=== PATIENT | male | born 1960 | race Caucasian/White ===

== ENCOUNTER 2018-08-29 23:52 | Inpatient (IN) ==
[2018-08-30] MEDS ORDERED: ONDANSETRON INJ 2 MG/ML 2 ML VIAL IV STA (00:12)
[2018-08-30] MEDS ORDERED: KETOROLAC 30 MG/ML VIAL IV STA (00:12)
[2018-08-30 00:30] LABS: Basophils # (auto) 0.01 K/uL (0-0.2); Basophils % (auto) 0.1 %; Eosinophils # (auto) 0.25 K/uL (0-0.5); Eosinophils % (auto) 2.4 %; Hematocrit (blood only) 47.5 % (42-52); Hemoglobin 17.1 g/dL (14.0-18.0); Immature Granulocytes # (auto) 0.03 K/uL (0.00-0.02); Immature Granulocytes % (auto) 0.3 %; Lymphocytes # (auto) 2.72 K/uL (1.2-3.4); Lymphocytes % (auto) 26.3 %; Mean Corpuscular Volume 92.6 fL (80-100); Mean Platelet Volume 10.5 fL (7.4-10.4); Monocytes # (auto) 0.79 K/uL (0.11-0.59); Monocytes % (auto) 7.6 %; Neutrophils # (auto) 6.54 K/uL (1.4-6.5); Neutrophils % (auto) 63.3 %; Platelet Count 187 K/uL (130-400); RDW Coefficient of Variation 12.4 % (11.5-14.5); RDW Standard Deviation 42.2 fL (36.4-46.3); Red Blood Count 5.13 M/uL (4.7-6.1); White Blood Count 10.34 K/uL (4.8-10.8)
[2018-08-30 00:31] LABS: Appearance Urine Clear (Clear); Bilirubin Urine Negative (Negative); Color Urine Yellow; Glucose Urine UA Negative (Negative); Ketones Urine Negative (Negative); Leukocyte Esterase Urine Negative (Negative); Nitrite Urine Negative (Negative); Protein Urine Negative (Negative); Specific Gravity Urine 1.021 (1.000-1.030); Urobilinogen Urine Negative (Negative)
[2018-08-30 00:46] LABS: BUN Creatinine Ratio 20.5 (10-20); Calcium 8.7 mg/dl (8.5-10.1); Creatinine Clr Calc Pharmacy 65.1 ml/min; Est GFR (African American) 65.2; Est GFR (Non-African American) 56.3; Potassium 3.8 mmol/L (3.5-5.1)
[2018-08-30 00:49] LABS: Albumin Globulin Ratio 1.1 (0.9-2); Bilirubin,Total 0.4 mg/dl (0.2-1); Globulin 3.7 gm/dl (2.5-4.0); Total Protein 7.7 gm/dl (6.4-8.2)
[2018-08-30] MEDS ORDERED: SODIUM CHLORIDE 0.9% 1000ML 1,000 ML IV SCH (02:00)
[2018-08-30] MEDS ORDERED: IOVERSOL 100ml IV PRN (02:17)
[2018-08-30] MEDS ORDERED: HYDROmorphone INJ 2 MG/ML SYR/VIAL IV STA (04:01)
--- NOTE | 2018-08-30 04:41 | History & Physical Report ---
Date of Service August 30, 2018 Assessment & Plan (1) Pancreatitis: Patient severe abdominal pain, markedly elevated lipase, pancreatic inflammation noted on CT c/w pancreatitis. Possibly secondary to EtOH intake. -Admit to medical floor -NPO -LR at 200mL/hr x 3 liters -Morphine PRN pain -Zofran PRN nausea -Continue to monitor (2) Hypertension: Blood pressure mildly elevated at present 147/103. -Pain control as above -Continue Lisinopril daily (3) Gout: Possible gout in left great toe. Pain started this AM as well. No history of Gout -Check uric acid with AM labs -X-ray left foot -Toradol PRN F/E/N - LR at 200mL/hr x 2 liters, monitor electrolytes and replete as needed, NPO for now Ppx - low risk for DVT Code - FUll Dispo - Admit to medical floor History of Present Illness Chief Complaint: Abdominal pain Primary Care Provider: Jose Purcell Mr. Mcfadden is a 57yo C male with history of HTN presenting with acute abdominal pain. Patient was sleeping in bed when he woke around 22:00 with severe abdominal pain. Pain in lower abdomen and back, cramping and stabbing in nature, 10/10. No nausea/vomiting/diarrhea or constipation. He tried to eat and drink a little bit with no relief. [place] [address] of the abdomen with fat stranding and peripancreatic fluid consistent with pancreatitis. Patient has never had pancreatitis before. No history of gallstones. He does drink 1-2 drinks/day. This evening he was bowling with family and had hot wings and split 2 pitchers of beer between 4 people. Patient also complaining of pain in the left great toe. He has been taking Ibuprofen at home for presumed Gout. Allergies Allergy/AdvReac Type Severity Reaction Status Date / Time nut - unspecified Allergy Severe Verified 08/30/18 04:32 almond Allergy Anaphylaxis Verified 08/30/18 03:33 Home Medications Home Medications Medication Instructions Recorded Confirmed Type lisinopril 10 mg PO DAILY 08/30/18 08/30/18 History Past Med/Surg History Medical History Hypertension Surgical History No significant past surgical history Family History Other No pertinent family history Social History Feels Safe at Home: Yes Smoking Status: Never smoker Hx Alcohol Use: Yes Hx Substance Use: No Preferred Language: Occitan Review of Systems All systems reviewed & are unremarkable except as noted in HPI & below Physical Exam 2 Vital Signs (Past 24 Hours): Last Vital Signs Temp 36.7 C 08/30/18 00:00 Pulse 77 08/30/18 04:15 Resp 16 08/30/18 04:15 BP 147/103 H 08/30/18 04:15 Pulse Ox 93 08/30/18 04:15 Physical Exam: General: patient in mild distress secondary to pain, non- toxic in appearance, AA&O x 4 Skin: warm, dry, intact, no rashes or lesions HEENT: NC/AT, PERRL, EOMI, anicteric sclera, conjunctiva without injection, external ear normal to inspection and nontender, nares patent, moist mucus membranes, dentition intact, no oropharyngeal lesions, neck supple, trachea midline, no LAD, no thyromegaly, no JVD Heart: +S1/S2, regular, no m/r/g Lungs: equal air entry bilaterally, no rales/rhonchi/wheezes Abd: +BS, soft, diffusely tender with voluntary guarding Ext: warm, 2+ pulses in UE/LE bilaterally, no clubbing/cyanosis or edema, left great toe with warmth, redness, swelling and tenderness Neuro: nonfocal, patient AA&O x 4, speech intact, no facial droop, moving all extremities on command with equal strength 5/5 Results & Data Laboratory Results Lab Results 08/30/18 08/30/18 08/30/18 Range/Units 00:10 00:17 00:17 WBC 10.34 (4.8-10.8) K/uL RBC 5.13 (4.7-6.1) M/uL Hgb 17.1 (14.0-18.0) g/dL Hct 47.5 (42-52) % MCV 92.6 (80-100) fL MCH 33.3 (25-34) pg MCHC 36.0 (32-36) g/dL RDW Std Deviation 42.2 (36.4-46.3) fL RDW Coeff of Tisha 12.4 (11.5-14.5) % Plt Count 187 (130-400) K/uL MPV 10.5 H (7.4-10.4) fL Immature Gran % (Auto) 0.3 % Neut % (Auto) 63.3 % Lymph % (Auto) 26.3 % [place] % (Auto) 7.6 % Eos % (Auto) 2.4 % Baso % (Auto) 0.1 % Immature Gran # (Auto) 0.03 H (0.00-0.02) K/uL Neut # (Auto) 6.54 H (1.4-6.5) K/uL Lymph # (Auto) 2.72 (1.2-3.4) K/uL [place] # (Auto) 0.79 H (0.11-0.59) K/uL Eos # (Auto) 0.25 (0-0.5) K/uL Baso # (Auto) 0.01 (0-0.2) K/uL Sodium 137 (136-145) mmol/L Potassium 3.8 (3.5-5.1) mmol/L Chloride 105 (98-107) mmol/L Carbon Dioxide 27 (21-32) mmol/L Anion Gap 5.0 (3-11) BUN 28 H (7-18) mg/dl Creatinine 1.39 (0.6-1.4) mg/dl Est Cr Clr Drug Dosing 65.1 ml/min Est GFR ( Amer) 65.2 Est GFR (Non-Af Amer) 56.3 BUN/Creatinine Ratio 20.5 H (10-20) Glucose 125 H (70-99) mg/dl Calcium 8.7 (8.5-10.1) mg/dl Total Bilirubin 0.4 (0.2-1) mg/dl AST 23 (15-37) U/L ALT 33 (12-78) U/L Alkaline Phosphatase 82 (45-117) U/L Total Protein 7.7 (6.4-8.2) gm/dl Albumin 4.0 (3.4-5.0) gm/dl Globulin 3.7 (2.5-4.0) gm/dl Albumin/Globulin Ratio 1.1 (0.9-2) Lipase 31908 H (73-393) U/L Urine Color Yellow Urine Appearance Clear (Clear) Urine pH 5.0 (4.5-7.5) Ur Specific [place] 1.021 (1.000-1.030) Urine Protein Negative (Negative) Urine Glucose (UA) Negative (Negative) Urine Ketones Negative (Negative) Urine Blood Negative (Negative) Urine Nitrite Negative (Negative) Urine Bilirubin Negative (Negative) Urine Urobilinogen Negative (Negative) Ur Leukocyte Esterase Negative (Negative) Diagnostic Findings CT Abdomen with fat stranding and fluid consistent with pancreatitis. No abscess or pseudocyst. No ductal dilatation or mass. Code Status & VTE Plan Code Status full VTE Prophylaxis Plan VTE Prophylaxis will be ordered: Yes Critical Care Time Critical Care Time: No _ (1) Pancreatitis Acute pancreatitis complication: unspecified Chronicity: acute Pancreatitis type: unspecified pancreatitis type Qualified Code(s): K85.90 - Acute pancreatitis without necrosis or infection, unspecified (2) Hypertension Hypertension type: essential hypertension Qualified Code(s): I10 - Essential (primary) hypertension (3) Gout Gout site: foot Gout etiology: unspecified cause Laterality: left Chronicity: acute Qualified Code(s): M10.9 - Gout, unspecified
--- NOTE | 2018-08-30 05:37 | Emergency Department Note ---
Entered by Kay Hope acting as a scribe for History of Present Illness General Chief complaint: Abdominal Pain Stated complaint: STOMACH,CHEST,LOW BACK PAIN FOR 90 MINUTES Time Seen by Provider: 08/30/18 00:04 History of Present Illness Onset (ago): minute(s) (90) Location: abdomen Radiation: back Severity: severe Pain Consistency: + intermittent Maximum Pain Intensity: 5 Relieved By: + none Exacerbated By: + other (deep breaths) Associated symptoms: + denies other symptoms (sore throat); no cough The patient is a 57 year old male who presents to the Emergency Room with complaints of abdominal pain that began 90 minutes ago. He states that the pain woke him up, and he notes that he felt normal prior to going to bed. The patient reports that the pain is severe, noting that it's intermittent. He states that the pain radiates to his back. The patient complains of pain in his left foot, stating that he was diagnosed with gout recently. He denies any sore throat or cough. The patient notes that nothing relieves the pain. He states that the pain worsens with deep breaths. The patient reports that he had a normal BM yesterday morning. He states that he had a colonoscopy, noting that it was normal. The patient notes a history of hypertension. Home Medications Home Medications Medication Instructions Recorded Confirmed Type lisinopril 10 mg PO DAILY 08/30/18 08/30/18 History Allergies Allergy/AdvReac Type Severity Reaction Status Date / Time nut - unspecified Allergy Severe Verified 08/30/18 04:32 almond Allergy Anaphylaxis Verified 08/30/18 03:33 Past Med/Surg History Medical History Hypertension Surgical History No significant past surgical history Family History Other No pertinent family history Social History Feels Safe at Home: Yes Smoking Status: Never smoker Hx Alcohol Use: Yes Hx Substance Use: No Preferred Language: [place] Review of Systems See HPI for pertinent positives & negatives. and A total of 10 systems reviewed and were otherwise negative Physical Exam Vital Signs Vital Signs - 24 hr 08/30/18 00:00 08/30/18 01:30 08/30/18 02:31 Temperature 36.7 C Temperature Source Oral Sepsis Recent Fever Within 48 Hours No Sepsis Action Taken by Nursing No Action Required Pulse Rate 73 78 Pulse Rate [Apical] 78 88 Pulse Rhythm Regular Pulse Rhythm [Apical] Regular Pulse Strength [Apical] Respiratory Rate 24 18 16 Respiratory Effort / Characteristics Spontaneous Non-Labored Spontaneous Non-Labored Respiratory Depth Shallow Normal Normal Respiratory Pattern Regular Regular Blood Pressure 154/92 H Blood Pressure [Left Arm] 139/75 Blood Pressure Mean 112 Blood Pressure Mean [Left Arm] 96 Pulse Oximetry 93 98 98 Oxygen Delivery Method Room Air Room Air Room Air 08/30/18 03:21 08/30/18 04:15 08/30/18 05:02 Temperature Temperature Source Sepsis Recent Fever Within 48 Hours Sepsis Action Taken by Nursing Pulse Rate Pulse Rate [Apical] 75 77 68 Pulse Rhythm Pulse Rhythm [Apical] Regular Regular Pulse Strength [Apical] Normal Normal Respiratory Rate 16 16 16 Respiratory Effort / Characteristics Non-Labored Spontaneous Non-Labored Respiratory Depth Normal Normal Respiratory Pattern Regular Regular Blood Pressure Blood Pressure [Left Arm] 134/62 147/103 H 133/97 Blood Pressure Mean Blood Pressure Mean [Left Arm] 86 117 109 Pulse Oximetry 98 93 95 Oxygen Delivery Method Room Air Room Air Room Air General: The patient appears quite unwell and uncomfortable. He is unable to keep still. HEENT: Head - normocephalic and atraumatic Pupils are equal, round, and reactive to light. Extraocular eye muscles are intact, and sclera are anicteric. Nose - moist nasal mucosa without discharge. Mouth - moist buccal mucosa. Oropharynx is nonerythematous and there is no tonsillar exudate or edema noted. Neck: Supple; no JVD, nuchal rigidity, cervical lymphadenopathy, or auscultated bruits. Heart: Tachycardic rate and regular rhythm. There is a normal S1 and S2 with no murmurs, clicks, or gallops appreciated. Lungs: Clear to auscultation bilaterally with no wheezes, rales, or rhonchi. Abdomen: Soft, nondistended, with good bowel sounds. There are no palpable pulsatile masses or hepatosplenomegaly. There is no guarding, rigidity, or rebound noted. Left upper quadrant and CVA tenderness. Extremities: No evidence of cyanosis, clubbing, or edema. There are easily palpable peripheral pulses. Skin: warm and dry with good turgor and no rashes. Course 0006: Past medical records reviewed. The patient was evaluated in room B10, and a complete history and physical examination were performed. An IV lock was initiated and labs were drawn as above. 0012: Toradol 30 mg IV, Zofran 4 mg IV. The patient had an obstruction series as described above. 0156: I checked on the patient. I reviewed the results of his laboratory studies including the significantly elevated lipase. He stated that he was comfortable and he didn't want pain medications. The patient admitted to drinking alcohol 4 nights a week, stating that this is less than he used to drink. 0200: NSS 1000 mls @ 999 mls/hr IV 0359: I checked on the patient. He stated that he was having more pain. 0401: Dilaudid 2 mg IV 0402: I spoke with Dr. Breanna Mathew, [facility] hospitalist, about the patients case. She will evaluate the patient further. Consultations Consultation #1: I spoke with Dr. Breanna Mathew, [facility] hospitalist, about the patients case. She will evaluate the patient further. Time: 04:02 Administered Medications Ioversol (Optiray 320 100ml) 100 ml IV ONCE PRN PRN Reason: Interaction Checking Stop: 09/03/18 02:16 Last Admin: 08/30/18 02:17 Dose: 92 ml Discontinued Medications Hydromorphone HCl (Dilaudid) 2 mg IV NOW STA Stop: 08/30/18 04:02 Last Admin: 08/30/18 04:13 Dose: 2 mg Sodium Chloride (Nss 1000ml) 1,000 mls @ 999 mls/hr IV .Q1H1M RICKEY Stop: 08/30/18 03:00 Last Infusion: 08/30/18 04:26 Dose: 0 mls/hr Admin: 08/30/18 02:21 Dose: 999 mls/hr Ketorolac Tromethamine (Toradol) 30 mg IV NOW STA Stop: 08/30/18 00:13 Last Admin: 08/30/18 00:27 Dose: 30 mg Ondansetron HCl (Zofran) 4 mg IV NOW STA Stop: 08/30/18 00:13 Last Admin: 08/30/18 00:28 Dose: 4 mg Medical Decision Making Differential Diagnosis The differential diagnosis includes: ureteral colic, pancreatitis abdominal aortic dissection, aortic aneurysm, colitis, diverticulitis, and small bowel obstruction Medical Records Attestation: I reviewed the patient's medical records. Home Medications Current Medication List: was personally reviewed by me Laboratory Data Attestation: I reviewed the patient's lab results. Result diagrams: 08/30/18 00:17 08/30/18 00:17 Lab Results 08/30/18 08/30/18 08/30/18 Range/Units 00:10 00:17 00:17 WBC 10.34 (4.8-10.8) K/uL RBC 5.13 (4.7-6.1) M/uL Hgb 17.1 (14.0-18.0) g/dL Hct 47.5 (42-52) % MCV 92.6 (80-100) fL MCH 33.3 (25-34) pg MCHC 36.0 (32-36) g/dL RDW Std Deviation 42.2 (36.4-46.3) fL RDW Coeff of Tisha 12.4 (11.5-14.5) % Plt Count 187 (130-400) K/uL MPV 10.5 H (7.4-10.4) fL Immature Gran % (Auto) 0.3 % Neut % (Auto) 63.3 % Lymph % (Auto) 26.3 % [place] % (Auto) 7.6 % Eos % (Auto) 2.4 % Baso % (Auto) 0.1 % Immature Gran # (Auto) 0.03 H (0.00-0.02) K/uL Neut # (Auto) 6.54 H (1.4-6.5) K/uL Lymph # (Auto) 2.72 (1.2-3.4) K/uL [place] # (Auto) 0.79 H (0.11-0.59) K/uL Eos # (Auto) 0.25 (0-0.5) K/uL Baso # (Auto) 0.01 (0-0.2) K/uL Sodium 137 (136-145) mmol/L Potassium 3.8 (3.5-5.1) mmol/L Chloride 105 (98-107) mmol/L Carbon Dioxide 27 (21-32) mmol/L Anion Gap 5.0 (3-11) BUN 28 H (7-18) mg/dl Creatinine 1.39 (0.6-1.4) mg/dl Est Cr Clr Drug Dosing 65.1 ml/min Est GFR ( Amer) 65.2 Est GFR (Non-Af Amer) 56.3 BUN/Creatinine Ratio 20.5 H (10-20) Glucose 125 H (70-99) mg/dl Calcium 8.7 (8.5-10.1) mg/dl Total Bilirubin 0.4 (0.2-1) mg/dl AST 23 (15-37) U/L ALT 33 (12-78) U/L Alkaline Phosphatase 82 (45-117) U/L Total Protein 7.7 (6.4-8.2) gm/dl Albumin 4.0 (3.4-5.0) gm/dl Globulin 3.7 (2.5-4.0) gm/dl Albumin/Globulin Ratio 1.1 (0.9-2) Lipase 26840 H (73-393) U/L Urine Color Yellow Urine Appearance Clear (Clear) Urine pH 5.0 (4.5-7.5) Ur Specific [place] 1.021 (1.000-1.030) Urine Protein Negative (Negative) Urine Glucose (UA) Negative (Negative) Urine Ketones Negative (Negative) Urine Blood Negative (Negative) Urine Nitrite Negative (Negative) Urine Bilirubin Negative (Negative) Urine Urobilinogen Negative (Negative) Ur Leukocyte Esterase Negative (Negative) Imaging Data Attestation: I personally reviewed and interpreted this imaging study as follows : My Impression: XRAY: No obvious free air. No evidence of SBO. Normal bowel gas pattern. Radiologist's Impression: Radiology results as stated below per my review and the radiologist's interpretation: CT ABDOMEN & PELVIS With Contrast: Prominent fat stranding and fluid surrounding the angriness is consistent with acute pancreatitis. The fluid extended into the left anterior pararenal space. No abscess or pseudocyst. No pancreatic duct dilatation or mass. NO biliary dilatation. Mild diverticulosis without diverticulitis. Normal appendix. No bowel obstruction or wall thickening. Small hiatal hernia. Radiologist: Griselda Lagunas MD Study ready at 02:21 and initial results transmitted at 02:37. Blood Pressure Blood Pressure Findings: Elevated blood pressure Blood Pressure Disposition: further management by hospitalist SEVERINO Clay The patient is a 57 year old male who presents to the Emergency Room with complaints of abdominal pain that began 90 minutes ago. The patient describes his pain is diffuse. He finds it difficult to sit still. Initially, I thought the patient may be having a kidney stone but there was no significant blood in the urine. Patient had a lipase that was extremely elevated. He went for CT scan which showed evidence of acute pancreatitis. The patient was kept n.p.o. He received IV fluids and IV analgesia. Impression & Plan Pancreatitis Discharge Plan Visit Data Chief Complaint: Abdominal Pain Stated Complaint: STOMACH,CHEST,LOW BACK PAIN FOR 90 MINUTES ED Provider: Magda Steve Discharge Problem: Pancreatitis Patient Disposition: Being Evaluated by Hospitalist Forms Stand Alone Forms: Call Back Authorization, [facility] Prescriptions Prescriptions: No Action lisinopril 10 mg tablet 10 mg PO DAILY RF: 0 Referrals Referrals: Jose Purcell [Primary Care Provider] - The scribe's documentation has been prepared under my direction and personally reviewed by me in its entirety. I confirm that the note above accurately reflects all work, treatment, procedures, and medical decision making performed by me.
--- NOTE | 2018-08-30 06:41 | XRay Report ---
XR abdomen 2V w PA chest CLINICAL HISTORY: eval for perf or sbo pain. COMPARISON STUDY: None FINDINGS: The soft tissues, psoas shadows, renal outlines and intestinal gas pattern appear normal. T here is no evidence for bowel obstruction. There is no evidence for free intraperitoneal air. No abno rmal abdominal calcifications are seen. A frontal view of the chest was performed and is unremarkable . IMPRESSION: Normal study. The above report was generated using voice recognition software. It may contain grammatical, syntax or spelling errors. Electronically signed by: Boo Driver M.D. 08/30/2018 6:39 AM
[2018-08-30] MEDS ORDERED: ONDANSETRON INJ 2 MG/ML 2 ML VIAL IV PRN (06:45)
--- NOTE | 2018-08-30 06:54 | CT Scan Report ---
CT abd pelvis IV con only CT DOSE: 990.18 mGy.cm HISTORY: Pain. eval for pancreatitis TECHNIQUE: Multiaxial CT images of the abdomen and pelvis were performed following the use of intrave nous contrast. A dose lowering technique was utilized adhering to the principles of ALARA. COMPARISON STUDY: None. FINDINGS: Bibasilar atelectasis. Small hiatal hernia. Liver and spleen enhance uniformly. Peripancreatic infiltrative change. A small amount of fluid extending along the left paracolic gutter with a small amount of fluid within the pelvic cul-de-sac. This branches consistent with that of acute pancreatitis. No evidence for drainable abscess or collection. No significant pseudocyst. Nonobstructive bowel pattern. Chronic sigmoid diverticulosis. No evidence for acute diverticulitis. B ladder is midline. IMPRESSION: 1. Acute pancreatitis. 2. Moderate peripancreatic infiltrative change with a small amount of fluid in left paracolic gutter and pelvic cul-de-sac. 3. No evidence for drainable abscess, collection, or pseudocyst. The above report was generated using voice recognition software. It may contain grammatical, syntax or spelling errors. Electronically signed by: Boo Driver M.D. 08/30/2018 6:53 AM
[2018-08-30] MEDS: LACTATED RINGER'S 1,000 ML IV SCH ×3 (07:24→16:33)
[2018-08-30] MEDS: LISINOPRIL 10 MG TAB PO SCH (07:24)
--- NOTE | 2018-08-30 07:25 | XRay Report ---
XR foot LT 2V CLINICAL HISTORY: ?Gout in great toe COMPARISON: None. DISCUSSION: The bones and joint spaces appear intact. There is no evidence of fracture, dislocation o r bony disease. There is no evidence for soft tissue swelling. IMPRESSION: No acute process. The above report was generated using voice recognition software. It may contain grammatical, syntax or spelling errors. Electronically signed by: Boo Driver M.D. 08/30/2018 7:23 AM
[2018-08-30 08:18] LABS: Magnesium 2.1 mg/dl (1.8-2.4); Phosphorus 4.9 mg/dl (2.5-4.9)
[2018-08-30] MEDS: MoRPHine SULFATE 4 MG/ML 1 ML CARP\\VIAL IV PRN ×5 (08:37→22:17)
[2018-08-30 11:44] LABS: Chol HDL Ratio 4; Cholesterol 143 mg/dl (0-200); HDL Cholesterol 34 mg/dl; LDL Cholesterol Calculated 89 mg/dl; Triglycerides 98 mg/dl (0-150); VLDL Cholesterol 20 mg/dl
[2018-08-30] MEDS: KETOROLAC TROMETHAMINE 15 MG/ML VIAL IV PRN (12:06)
--- NOTE | 2018-08-30 12:11 | Gastrointestinal Consultation ---
Date of Consultation August 30, 2018 Assessment & Plan (1) Pancreatitis: Pt is a 57 y/o male currently admitted for pancreatitis, suspected ETOH induced. Normal LFTs, CT w/o signs of abscess, cysts, or other fluid collection. - NPO except sips and chips. May advance diet slowly starting with clear liquid tomorrow if abdominal pain is improving. - Start Protonix 40mg IV while NPO - IVF LR @200ml/hr - Repeat CBC and will give additional IVF bolus if doesn't appear to have enough signs of hemodilution. - Symptomatic management w antiemetics and analgesics prn - Consider EUS eval in 4-6 week's time to r/o cysts, divisium, gallstones which may cause pancreatitis as well - Recommend ETOH cessation. - Pls recall if any questions/concerns for the rest of his hospitalization stay. Present on Admission?: Yes Supervising Physician Co-Signing Physician Notes I have seen and examined the patient with AMBREEN Ch whose note reflects our findings and plan. Still with some abd pain. Exam otherwise normal. Imaging and labs and clinical presentation consistent with ETOH related pancreatitis. Will need conservative mgt and plan for possible EUS in 6 weeks to further evaluate the pancreas. History of Present Illness Reason for Consultation: Pancreatitis Requesting Physician: Dr. Rosy Dawson Attending Physician: Dr. Kimberly Diaz History of Present Illness Pt is a 57 y/o male w PMHx of HTN on Lisinopril who is currently admitted with pancreatitis. He started having RUQ abd pain radiating to LUQ abd pain associated w mild nausea but no vomiting. He said pain started around 11P last night. He denies any fever, chills, CP, SOB, or bowel habit changes. Upon eval noted to have no leukocytosis, CMP unremarkable and LFTs are normal but Lipase over 23K. CT abd/pelvis w contrast showed signs of acute pancreatitis but no abscess, fluid collection or cyst. Pt denies tobacco uses. He admits to drink liquor every day up till a year ago and decreased intake to every other day. He did have some beer last night when bowling w family and friends. Father w hx of pancreatitis, unsure of etiology. His TG level is 98. He still has gallbladder in place. He does take Advil up to 4 tabs a day for joint aches, denies any hx of ulcers or heartburn/reflux. Currently he is c/o abd pain not much improved since last night. No n/v. Pain better if he hold still. Allergies Allergy/AdvReac Type Severity Reaction Status Date / Time nut - unspecified Allergy Severe Verified 08/30/18 04:32 almond Allergy Anaphylaxis Verified 08/30/18 03:33 Home Medications Home Medications Medication Instructions Recorded Confirmed Type lisinopril 10 mg PO DAILY 08/30/18 08/30/18 History Patient History Medical History Hypertension Surgical History No significant past surgical history Family History Other No pertinent family history Social History Current Living Situation: Spouse and Family Other Information That Helps Us Care for You: No Feels Safe at Home: Yes Safety Concerns: Feels Safe At This Time Smoking Status: Never smoker Hx Alcohol Use: Yes Alcohol type: beer and hard liquor Alcohol Intake Frequency : other Hx Substance Use: No Beliefs That Will Affect Care: None Preferred Language: Indonesian Communication Ability: Effective Teletype Clerk Required: No Review of Systems Constitutional: as per Subjective / HPI Respiratory: no cough and no dyspnea Cardiovascular: no chest pain, no lightheadedness and no edema Gastrointestinal: as per Subjective / HPI, + abdominal pain and + nausea; no heartburn, no vomiting and no change in stools Physical Exam 2 Vital Signs (Past 24 Hours): Last Vital Signs Temp 36.7 C 08/30/18 07:06 Pulse 94 H 08/30/18 07:06 Resp 16 08/30/18 05:59 BP 151/97 H 08/30/18 07:06 Pulse Ox 92 08/30/18 07:06 Constitutional: WD/WN, vitals as above well groomed, cooperative and + in distress (c/o abd pain ) Eyes: PERRL, conjunctivae normal, anicteric sclerae ENMT: external ear and nose normal, oropharynx normal Respiratory: normal respiratory effort, lungs clear to auscultation Cardiovascular: RRR, no murmur, no edema Gastrointestinal (Abdomen): Inspection/Auscultation: + hypoactive bowel sounds ; abdomen not distended Percussion/Palpation: + abdomen tender (upper quadrants) and abdomen soft Skin: no rashes, warm and dry no jaundice Neurologic: Motor/Sensory: no asterixis Psychiatric: A+Ox3, euthymic affect Lymphatic: no lymphedema Results & Data Laboratory Results Laboratory Results - last 48 hr 08/30/18 08/30/18 08/30/18 00:10 00:17 00:17 WBC 10.34 RBC 5.13 Hgb 17.1 Hct 47.5 MCV 92.6 MCH 33.3 MCHC 36.0 RDW Std Deviation 42.2 RDW Coeff of Tisha 12.4 Plt Count 187 MPV 10.5 H Immature Gran % (Auto) 0.3 Neut % (Auto) 63.3 Lymph % (Auto) 26.3 [place] % (Auto) 7.6 Eos % (Auto) 2.4 Baso % (Auto) 0.1 Immature Gran # (Auto) 0.03 H Neut # (Auto) 6.54 H Lymph # (Auto) 2.72 [place] # (Auto) 0.79 H Eos # (Auto) 0.25 Baso # (Auto) 0.01 Sodium 137 Potassium 3.8 Chloride 105 Carbon Dioxide 27 Anion Gap 5.0 BUN 28 H Creatinine 1.39 Est Cr Clr Drug Dosing 65.1 Est GFR ( Amer) 65.2 Est GFR (Non-Af Amer) 56.3 BUN/Creatinine Ratio 20.5 H Glucose 125 H Calcium 8.7 Phosphorus Magnesium Total Bilirubin 0.4 AST 23 ALT 33 Alkaline Phosphatase 82 Total Protein 7.7 Albumin 4.0 Globulin 3.7 Albumin/Globulin Ratio 1.1 Triglycerides Cholesterol LDL Cholesterol, Calc VLDL Cholesterol, Calc HDL Cholesterol Cholesterol/HDL Ratio Lipase 97173 H Urine Color Yellow Urine Appearance Clear Urine pH 5.0 Ur Specific [place] 1.021 Urine Protein Negative Urine Glucose (UA) Negative Urine Ketones Negative Urine Blood Negative Urine Nitrite Negative Urine Bilirubin Negative Urine Urobilinogen Negative Ur Leukocyte Esterase Negative 08/30/18 08/30/18 07:14 07:14 WBC RBC Hgb Hct MCV MCH MCHC RDW Std Deviation RDW Coeff of Tisha Plt Count MPV Immature Gran % (Auto) Neut % (Auto) Lymph % (Auto) [place] % (Auto) Eos % (Auto) Baso % (Auto) Immature Gran # (Auto) Neut # (Auto) Lymph # (Auto) [place] # (Auto) Eos # (Auto) Baso # (Auto) Sodium Potassium Chloride Carbon Dioxide Anion Gap BUN Creatinine Est Cr Clr Drug Dosing Est GFR ( Amer) Est GFR (Non-Af Amer) BUN/Creatinine Ratio Glucose Calcium Phosphorus 4.9 Magnesium 2.1 Total Bilirubin AST ALT Alkaline Phosphatase Total Protein Albumin Globulin Albumin/Globulin Ratio Triglycerides 98 Cholesterol 143 LDL Cholesterol, Calc 89 VLDL Cholesterol, Calc 20 HDL Cholesterol 34 Cholesterol/HDL Ratio 4 Lipase Urine Color Urine Appearance Urine pH Ur Specific [place] Urine Protein Urine Glucose (UA) Urine Ketones Urine Blood Urine Nitrite Urine Bilirubin Urine Urobilinogen Ur Leukocyte Esterase Diagnostic Findings CT abd pelvis IV con only CT DOSE: 990.18 mGy.cm HISTORY: Pain. eval for pancreatitis TECHNIQUE: Multiaxial CT images of the abdomen and pelvis were performed following the use of intravenous contrast. A dose lowering technique was utilized adhering to the principles of ALARA. COMPARISON STUDY: None. FINDINGS: Bibasilar atelectasis. Small hiatal hernia. Liver and spleen enhance uniformly. Peripancreatic infiltrative change. A small amount of fluid extending along the left paracolic gutter with a small amount of fluid within the pelvic cul-de-sac. This branches consistent with that of acute pancreatitis. No evidence for drainable abscess or collection. No significant pseudocyst. Nonobstructive bowel pattern. Chronic sigmoid diverticulosis. No evidence for acute diverticulitis. Bladder is midline. IMPRESSION: 1. Acute pancreatitis. 2. Moderate peripancreatic infiltrative change with a small amount of fluid in left paracolic gutter and pelvic cul-de-sac. 3. No evidence for drainable abscess, collection, or pseudocyst. _ (1) Pancreatitis Acute pancreatitis complication: unspecified Chronicity: acute Pancreatitis type: unspecified pancreatitis type Qualified Code(s): K85.90 - Acute pancreatitis without necrosis or infection, unspecified
[2018-08-30 12:37] LABS: Basophils # (auto) 0.01 K/uL (0-0.2); Basophils % (auto) 0.1 %; Eosinophils # (auto) 0.09 K/uL (0-0.5); Hematocrit (blood only) 44.6 % (42-52); Hemoglobin 15.5 g/dL (14.0-18.0); Immature Granulocytes # (auto) 0.02 K/uL (0.00-0.02); Immature Granulocytes % (auto) 0.2 %; Lymphocytes # (auto) 0.82 K/uL (1.2-3.4); Lymphocytes % (auto) 8.9 %; Mean Corpuscular Hgb Conc 34.8 g/dL (32-36); Mean Corpuscular Volume 93.1 fL (80-100); Mean Platelet Volume 10.6 fL (7.4-10.4); Monocytes # (auto) 0.86 K/uL (0.11-0.59); Monocytes % (auto) 9.3 %; Neutrophils # (auto) 7.46 K/uL (1.4-6.5); Neutrophils % (auto) 80.5 %; Platelet Count 172 K/uL (130-400); RDW Coefficient of Variation 12.8 % (11.5-14.5); RDW Standard Deviation 43.1 fL (36.4-46.3); Red Blood Count 4.79 M/uL (4.7-6.1); White Blood Count 9.26 K/uL (4.8-10.8)
--- NOTE | 2018-08-30 14:48 | Family Medicine Progress Note ---
Date of Service August 30, 2018 Assessment & Plan (1) Pancreatitis: 57 y/o M with PMH HTN presents with severe abdominal pain, markedly elevated lipase, pancreatic inflammation noted on CT c/w pancreatitis. Possibly secondary to EtOH intake. 1) Acute Pancreatitis -fam hx pancreatitis in father -etoh use (1-2 drinks/day - liquor). 4-5 night before admission. -NPO. Will advance diet slowly starting with clear liquid tomorrow if abd pain improving - Start Protonix 40mg IV while NPO - IVF LR @200ml/hr -Morphine 4 mg q3 prn -Zofran PRN nausea -ETOH cessation counseling -GI consult: Consider EUS eval in 4-6 week's time to r/o cysts, divisium, gallstones which may cause pancreatitis as well 2) HTN -likely 2/2 pain. Pain control as above -Continue Lisinopril daily 3) ?Gout -No previous hx. Possible gout in left great toe. Pain improving -Uric acid pending -X-ray left foot- No acute process -Toradol PRN FEN: LR at 200mL/hr, NPO for now FULL DVT Prophylaxis: Low risk Dispo - Medical floor Supervising Physician Co-Signing Physician Notes Resident Physician Supervision Note: I independently interviewed and examined the patient and verified the campos history and physical, reviewed labs and image studies, discussed the case with the resident Dr. Crespo and agree with the findings and care plan. Subjective 57 y/o M found in bed this AM in mild distress 2/2 abd pain. Toe pain improving. Pt reports no acute overnight events. Pt NPO. No issues with voiding. Pt reports no other acute concerns or complaints. Review of Systems All systems reviewed & are unremarkable except as noted in HPI & below Physical Exam 2 Vital Signs (Past 24 Hours): Last Vital Signs Temp 36.7 C 08/30/18 07:06 Pulse 94 H 08/30/18 07:06 Resp 16 08/30/18 05:59 BP 151/97 H 08/30/18 07:06 Pulse Ox 92 08/30/18 07:06 Constitutional: WD/WN, vitals as above Eyes: PERRL, conjunctivae normal, anicteric sclerae ENMT: external ear and nose normal, oropharynx normal Respiratory: normal respiratory effort, lungs clear to auscultation Cardiovascular: RRR, no murmur, no edema Gastrointestinal (Abdomen): diffusely tender abd Skin: no rashes, warm and dry L great toe warm and mild tenderness to touch Psychiatric: A+Ox3, euthymic affect Results & Data Laboratory Results Laboratory Results - last 24 hr 08/30/18 08/30/18 08/30/18 00:10 00:17 00:17 WBC 10.34 RBC 5.13 Hgb 17.1 Hct 47.5 MCV 92.6 MCH 33.3 MCHC 36.0 RDW Std Deviation 42.2 RDW Coeff of Tisha 12.4 Plt Count 187 MPV 10.5 H Immature Gran % (Auto) 0.3 Neut % (Auto) 63.3 Lymph % (Auto) 26.3 [place] % (Auto) 7.6 Eos % (Auto) 2.4 Baso % (Auto) 0.1 Immature Gran # (Auto) 0.03 H Neut # (Auto) 6.54 H Lymph # (Auto) 2.72 [place] # (Auto) 0.79 H Eos # (Auto) 0.25 Baso # (Auto) 0.01 Sodium 137 Potassium 3.8 Chloride 105 Carbon Dioxide 27 Anion Gap 5.0 BUN 28 H Creatinine 1.39 Est Cr Clr Drug Dosing 65.1 Est GFR ( Amer) 65.2 Est GFR (Non-Af Amer) 56.3 BUN/Creatinine Ratio 20.5 H Glucose 125 H Calcium 8.7 Phosphorus Magnesium Total Bilirubin 0.4 AST 23 ALT 33 Alkaline Phosphatase 82 Total Protein 7.7 Albumin 4.0 Globulin 3.7 Albumin/Globulin Ratio 1.1 Triglycerides Cholesterol LDL Cholesterol, Calc VLDL Cholesterol, Calc HDL Cholesterol Cholesterol/HDL Ratio Lipase 60211 H Urine Color Yellow Urine Appearance Clear Urine pH 5.0 Ur Specific [place] 1.021 Urine Protein Negative Urine Glucose (UA) Negative Urine Ketones Negative Urine Blood Negative Urine Nitrite Negative Urine Bilirubin Negative Urine Urobilinogen Negative Ur Leukocyte Esterase Negative 08/30/18 08/30/18 08/30/18 07:14 07:14 12:22 WBC 9.26 RBC 4.79 Hgb 15.5 Hct 44.6 MCV 93.1 MCH 32.4 MCHC 34.8 RDW Std Deviation 43.1 RDW Coeff of Tisha 12.8 Plt Count 172 MPV 10.6 H Immature Gran % (Auto) 0.2 Neut % (Auto) 80.5 Lymph % (Auto) 8.9 [place] % (Auto) 9.3 Eos % (Auto) 1.0 Baso % (Auto) 0.1 Immature Gran # (Auto) 0.02 Neut # (Auto) 7.46 H Lymph # (Auto) 0.82 L [place] # (Auto) 0.86 H Eos # (Auto) 0.09 Baso # (Auto) 0.01 Sodium Potassium Chloride Carbon Dioxide Anion Gap BUN Creatinine Est Cr Clr Drug Dosing Est GFR ( Amer) Est GFR (Non-Af Amer) BUN/Creatinine Ratio Glucose Calcium Phosphorus 4.9 Magnesium 2.1 Total Bilirubin AST ALT Alkaline Phosphatase Total Protein Albumin Globulin Albumin/Globulin Ratio Triglycerides 98 Cholesterol 143 LDL Cholesterol, Calc 89 VLDL Cholesterol, Calc 20 HDL Cholesterol 34 Cholesterol/HDL Ratio 4 Lipase Urine Color Urine Appearance Urine pH Ur Specific [place] Urine Protein Urine Glucose (UA) Urine Ketones Urine Blood Urine Nitrite Urine Bilirubin Urine Urobilinogen Ur Leukocyte Esterase Medications Administered Current Inpatient Medications Lactated Ringer's (Lr) 1,000 mls @ 200 mls/hr IV .Q5H [facility] Stop: 08/30/18 21:44 Last Admin: 08/30/18 12:29 Dose: 200 mls/hr Pantoprazole Sodium 40 mg/ (Syringe) 10 mls @ 5 mls/min IV DAILY@1100 [facility] Stop: 09/30/18 10:59 Ketorolac Tromethamine (Toradol) 15 mg IV Q6H PRN PRN Reason: Pain Stop: 09/04/18 06:44 Last Admin: 08/30/18 12:06 Dose: 15 mg Lisinopril (Zestril) 10 mg PO DAILY [facility] Stop: 09/29/18 08:59 Last Admin: 08/30/18 07:24 Dose: 10 mg Morphine Sulfate (Morphine Sulfate) 4 mg IV Q3HWA PRN PRN Reason: Pain Stop: 09/13/18 06:44 Ondansetron HCl (Zofran) 4 mg IV Q6H PRN PRN Reason: Nausea Stop: 09/29/18 06:44 Resident Activity Tracking Resident Involvement: Resident Care Provided Care Provided: [facility] _ (1) Pancreatitis Acute pancreatitis complication: unspecified Chronicity: acute Pancreatitis type: unspecified pancreatitis type Qualified Code(s): K85.90 - Acute pancreatitis without necrosis or infection, unspecified
[2018-08-31] MEDS: MoRPHine SULFATE 4 MG/ML 1 ML CARP\\VIAL IV PRN ×3 (02:29→08:12)
[2018-08-31 06:10] LABS: Basophils # (auto) 0.01 K/uL (0-0.2); Basophils % (auto) 0.1 %; Eosinophils % (auto) 0.9 %; Hematocrit (blood only) 42.6 % (42-52); Hemoglobin 14.7 g/dL (14.0-18.0); Immature Granulocytes # (auto) 0.02 K/uL (0.00-0.02); Immature Granulocytes % (auto) 0.2 %; Lymphocytes # (auto) 1.11 K/uL (1.2-3.4); Lymphocytes % (auto) 9.7 %; Mean Corpuscular Hgb Conc 34.5 g/dL (32-36); Mean Corpuscular Volume 94.5 fL (80-100); Mean Platelet Volume 9.9 fL (7.4-10.4); Monocytes # (auto) 1.08 K/uL (0.11-0.59); Monocytes % (auto) 9.5 %; Neutrophils % (auto) 79.6 %; Platelet Count 164 K/uL (130-400); RDW Coefficient of Variation 12.8 % (11.5-14.5); RDW Standard Deviation 44.2 fL (36.4-46.3); Red Blood Count 4.51 M/uL (4.7-6.1); White Blood Count 11.42 K/uL (4.8-10.8)
[2018-08-31] MEDS: KETOROLAC TROMETHAMINE 15 MG/ML VIAL IV PRN ×2 (06:10→18:41)
[2018-08-31 06:57] LABS: Albumin Level 3.2 gm/dl (3.4-5.0); BUN Creatinine Ratio 21.6 (10-20); Calcium 7.8 mg/dl (8.5-10.1); Creatinine Clr Calc Pharmacy 104.1 ml/min; Est GFR (African American) 111.8; Est GFR (Non-African American) 96.5; Uric Acid 6.6 mg/dl (2.6-7.2)
[2018-08-31 07:05] LABS: Bilirubin,Total 1.3 mg/dl (0.2-1); Globulin 3.3 gm/dl (2.5-4.0); Total Protein 6.5 gm/dl (6.4-8.2)
[2018-08-31] MEDS: LISINOPRIL 10 MG TAB PO SCH (07:50)
[2018-08-31] MEDS: LACTATED RINGER'S 1,000 ML IV SCH ×3 (11:14→21:57)
[2018-08-31] MEDS: PANTOprazole 40 MG in SYRINGE 0 ML IV SCH (11:15)
[2018-08-31] MEDS ORDERED: HYDROmorphone INJ 1 MG/ML SYRINGE IV STA (11:29)
--- NOTE | 2018-08-31 14:31 | Gastroenterology Progress Note ---
Date of Service August 31, 2018 Assessment & Plan (1) Pancreatitis: Pt is a 57 y/o male currently admitted for pancreatitis, suspected ETOH induced. Clear liquid diet Restart IVR at 200/hr, through tomorrow morning atleast Incentive spirometry Encouraged ambulation Symptomatic management w antiemetics and analgesics prn Consider EUS eval in 4-6 week's time to r/o cysts, divisium, gallstones which may cause pancreatitis as well Recommend ETOH cessation. GI will sign off. Supervising Physician Co-Signing Physician Notes Late entry: patient was tamiko and examine don 08/31 with AMBREEN Phillips whose note reflects our findings and plan. Subjective Mr. Ronak Mcfadden is a 57 yr old male with ETOH pancreatitis, still in considerable upper abdomen pain. Lipase was 23,525, today 3,319; T bili 1.3 today, other LFTs normal. On clear liqs po. Constitutional: as per Subjective / HPI Gastrointestinal: as per Subjective / HPI, + abdominal pain and + nausea; no heartburn, no vomiting and no change in stools Physical Exam 2 Vital Signs (Past 24 Hours): Last Vital Signs Temp 36.6 C 08/31/18 08:00 Pulse 80 08/31/18 08:00 Resp 16 08/31/18 08:00 BP 135/81 08/31/18 08:00 Pulse Ox 90 08/31/18 08:00 Constitutional: WD/WN, vitals as above well developed, + ill appearing, well groomed and + in distress (c/o abd pain ) ENMT: external ear and nose normal, oropharynx normal Respiratory: normal respiratory effort, lungs clear to auscultation normal respiratory effort and able to speak in complete sentences; no respiratory distress, no labored breathing, does not use accessory muscles and no cough few crackles in the left base, no wheezes Gastrointestinal (Abdomen): Inspection/Auscultation: abdomen normal to inspection, normal bowel sounds and + hypoactive bowel sounds; no abdominal edema Percussion/Palpation: + abdomen tender (upper quadrants); no guarding and abdomen not rigid Skin: normal turgor and + pallor; no jaundice Neurologic: PERRL, EOMI, accommodation nl, no face palsy, no dysarthria awake; not confused Motor/Sensory: no asterixis Psychiatric: Orientation: alert, oriented x 3 and cooperative Lymphatic: no lymphedema Results & Data Laboratory Results Lipase 3,[address] with IV contrast 08/30 1. Acute pancreatitis. 2. Moderate peripancreatic infiltrative change with a small amount of fluid in left paracolic gutter and pelvic cul-de-sac. 3. No evidence for drainable abscess, collection, or pseudocyst. _ (1) Pancreatitis Acute pancreatitis complication: unspecified Chronicity: acute Pancreatitis type: unspecified pancreatitis type Qualified Code(s): K85.90 - Acute pancreatitis without necrosis or infection, unspecified
[2018-08-31] MEDS: HYDROmorphone INJ 1 MG/ML SYRINGE IV PRN ×3 (15:17→20:08)
--- NOTE | 2018-08-31 16:34 | Family Medicine Progress Note ---
Date of Service August 31, 2018 Assessment & Plan (1) Pancreatitis: 57 y/o M with PMH HTN presents with severe abdominal pain, markedly elevated lipase, pancreatic inflammation noted on CT c/w pancreatitis. Possibly secondary to EtOH intake. 1) Acute Pancreatitis -fam hx pancreatitis in father age 55 -mild etoh use (1-2 drinks/day). 4-5 night before admission. -Clear liquid diet. - Protonix 40mg IV - IVF LR @200ml/hr -Morphine d/c, start IV dilaudid 1 mg q2 prn -Zofran PRN nausea -lipase 3319 today -ETOH cessation counseling -GI consult: Consider EUS eval in 4-6 week's time to r/o cysts, divisium, gallstones which may cause pancreatitis as well -Incentive spirometry, Encouraged ambulation 2) HTN -likely 2/2 pain. Pain control as above -Continue Lisinopril daily 3) ?Gout -No previous hx. Possible gout in left great toe. Pain improving -Uric acid pending -X-ray left foot- No acute process -Toradol PRN FEN: LR at 200mL/hr, Clears FULL DVT Prophylaxis: Low risk Dispo - Medical floor Supervising Physician Co-Signing Physician Notes Resident Physician Supervision Note: I independently interviewed and examined the patient and verified the campos history and physical, reviewed labs and image studies, discussed the case with the resident Dr. Crespo and agree with the findings and care plan. Subjective 57 y/o M found in the hallways this AM in mild distress 2/2 abd pain walking around. Toe pain improved. Pt reports no acute overnight events. Pt NPO. No issues with voiding. Pt reports no other acute concerns or complaints. Physical Exam 2 Vital Signs (Past 24 Hours): Last Vital Signs Temp 37.1 C 08/31/18 15:47 Pulse 94 H 08/31/18 15:47 Resp 18 08/31/18 15:47 BP 152/87 H 08/31/18 15:47 Pulse Ox 90 08/31/18 15:47 Constitutional: WD/WN, vitals as above Eyes: PERRL, conjunctivae normal, anicteric sclerae ENMT: external ear and nose normal, oropharynx normal Respiratory: normal respiratory effort, lungs clear to auscultation Cardiovascular: RRR, no murmur, no edema Gastrointestinal (Abdomen): diffusely tender abd Skin: no rashes, warm and dry Psychiatric: A+Ox3, euthymic affect Results & Data Laboratory Results Laboratory Results - last 24 hr 08/31/18 08/31/18 08/31/18 05:56 05:56 05:56 WBC 11.42 H RBC 4.51 L Hgb 14.7 Hct 42.6 MCV 94.5 MCH 32.6 MCHC 34.5 RDW Std Deviation 44.2 RDW Coeff of Tisha 12.8 Plt Count 164 MPV 9.9 Immature Gran % (Auto) 0.2 Neut % (Auto) 79.6 Lymph % (Auto) 9.7 [place] % (Auto) 9.5 Eos % (Auto) 0.9 Baso % (Auto) 0.1 Immature Gran # (Auto) 0.02 Neut # (Auto) 9.10 H Lymph # (Auto) 1.11 L [place] # (Auto) 1.08 H Eos # (Auto) 0.10 Baso # (Auto) 0.01 Sodium 138 Potassium 4.0 Chloride 104 Carbon Dioxide 26 Anion Gap 8.0 BUN 19 H Creatinine 0.87 D Est Cr Clr Drug Dosing 104.1 Est GFR ( Amer) 111.8 Est GFR (Non-Af Amer) 96.5 BUN/Creatinine Ratio 21.6 H Glucose 84 Uric Acid 6.6 Calcium 7.8 L Total Bilirubin 1.3 H D AST 15 ALT 23 Alkaline Phosphatase 47 Total Protein 6.5 Albumin 3.2 L Globulin 3.3 Albumin/Globulin Ratio 1.0 Lipase 3319 H Medications Administered Current Inpatient Medications Hydromorphone HCl (Dilaudid) 1 mg IV Q2H PRN PRN Reason: Pain Stop: 09/14/18 11:31 Last Admin: 08/31/18 15:17 Dose: 1 mg Pantoprazole Sodium 40 mg/ (Syringe) 10 mls @ 5 mls/min IV DAILY@1100 [facility] Stop: 09/30/18 10:59 Last Admin: 08/31/18 11:15 Dose: 5 mls/min Lactated Ringer's (Lr) 1,000 mls @ 200 mls/hr IV .Q5H [facility] Stop: 09/01/18 08:00 Last Admin: 08/31/18 11:14 Dose: 200 mls/hr Ketorolac Tromethamine (Toradol) 15 mg IV Q6H PRN PRN Reason: Pain Stop: 09/04/18 06:44 Last Admin: 08/31/18 06:10 Dose: 15 mg Lisinopril (Zestril) 10 mg PO DAILY [facility] Stop: 09/29/18 08:59 Last Admin: 08/31/18 07:50 Dose: 10 mg Ondansetron HCl (Zofran) 4 mg IV Q6H PRN PRN Reason: Nausea Stop: 09/29/18 06:44 Resident Activity Tracking Resident Involvement: Resident Care Provided Care Provided: [facility] _ (1) Pancreatitis Acute pancreatitis complication: unspecified Chronicity: acute Pancreatitis type: unspecified pancreatitis type Qualified Code(s): K85.90 - Acute pancreatitis without necrosis or infection, unspecified
[2018-09-01] MEDS: HYDROmorphone INJ 1 MG/ML SYRINGE IV PRN ×4 (02:12→09:20)
[2018-09-01] MEDS: LACTATED RINGER'S 1,000 ML IV SCH ×2 (02:41→06:14)
[2018-09-01] MEDS: KETOROLAC TROMETHAMINE 15 MG/ML VIAL IV PRN ×3 (04:01→17:21)
[2018-09-01 06:27] LABS: Basophils # (auto) 0.01 K/uL (0-0.2); Basophils % (auto) 0.1 %; Eosinophils # (auto) 0.28 K/uL (0-0.5); Eosinophils % (auto) 2.8 %; Hematocrit (blood only) 38.6 % (42-52); Hemoglobin 13.4 g/dL (14.0-18.0); Immature Granulocytes # (auto) 0.01 K/uL (0.00-0.02); Immature Granulocytes % (auto) 0.1 %; Lymphocytes # (auto) 1.11 K/uL (1.2-3.4); Lymphocytes % (auto) 11.3 %; Mean Corpuscular Hgb Conc 34.7 g/dL (32-36); Mean Corpuscular Volume 94.6 fL (80-100); Monocytes # (auto) 0.91 K/uL (0.11-0.59); Monocytes % (auto) 9.2 %; Neutrophils # (auto) 7.53 K/uL (1.4-6.5); Neutrophils % (auto) 76.5 %; Platelet Count 143 K/uL (130-400); RDW Coefficient of Variation 12.6 % (11.5-14.5); RDW Standard Deviation 42.9 fL (36.4-46.3); Red Blood Count 4.08 M/uL (4.7-6.1); White Blood Count 9.85 K/uL (4.8-10.8)
[2018-09-01 06:54] LABS: Albumin Level 2.8 gm/dl (3.4-5.0); BUN Creatinine Ratio 21.2 (10-20); Calcium 7.6 mg/dl (8.5-10.1); Creatinine Clr Calc Pharmacy 106.5 ml/min; Est GFR (African American) 112.9; Est GFR (Non-African American) 97.4; Potassium 3.7 mmol/L (3.5-5.1)
[2018-09-01 06:57] LABS: Albumin Globulin Ratio 0.9 (0.9-2); Bilirubin,Total 1.1 mg/dl (0.2-1); Globulin 3.3 gm/dl (2.5-4.0); Total Protein 6.1 gm/dl (6.4-8.2)
[2018-09-01] MEDS: LISINOPRIL 10 MG TAB PO SCH (09:21)
[2018-09-01] MEDS: PANTOprazole 40 MG in SYRINGE 0 ML IV SCH (11:21)
[2018-09-01] MEDS: HYDROmorphone INJ 0.5 MG/0.5 ML SYR IV PRN ×3 (13:58→21:59)
--- NOTE | 2018-09-01 15:15 | Family Medicine Progress Note ---
Date of Service September 01, 2018 Assessment & Plan (1) Pancreatitis: 57 y/o M with PMH HTN presents with severe abdominal pain, markedly elevated lipase, pancreatic inflammation noted on CT c/w pancreatitis. Possibly secondary to EtOH intake. 1) Acute Pancreatitis -fam hx pancreatitis in father age 55 -mild etoh use (1-2 drinks/day). 4-5 night before admission. -Clear liquid diet - Protonix 40mg IV -IV dilaudid decreased to .5mg q4 prn -Zofran PRN nausea -lipase 518 today -ETOH cessation counseling -GI consult: Consider EUS eval in 4-6 week's time to r/o cysts, divisium, gallstones which may cause pancreatitis as well. Patient sees [facility] as outpatient - will follow up with them on discharge. -Incentive spirometry, Encouraged ambulation 2) HTN -likely 2/2 pain. Pain control as above -Continue Lisinopril daily 3) ?Gout -No previous hx. Possible gout in left great toe. Pain improving -Uric acid normal -X-ray left foot- No acute process -Toradol PRN FULL DVT Prophylaxis: Low risk Dispo - Medical floor Supervising Physician Co-Signing Physician Notes Resident Physician Supervision Note: I independently interviewed and examined the patient and verified the campos history and physical, reviewed labs and image studies, discussed the case with the resident Dr. Crespo and agree with the findings and care plan. Subjective 57 y/o M found in bed this AM, reports abd pain still, but improving. Toe pain improved. Pt reports no acute overnight events. Pt advanced to clears, tolerating PO intake so far. No issues with voiding. Pt reports no other acute concerns or complaints. Review of Systems All systems reviewed & are unremarkable except as noted in HPI & below Physical Exam 2 Vital Signs (Past 24 Hours): Last Vital Signs Temp 37.6 C H 09/01/18 07:40 Pulse 93 H 09/01/18 07:40 Resp 20 09/01/18 07:40 BP 156/90 H 09/01/18 07:40 Pulse Ox 90 09/01/18 07:40 Constitutional: WD/WN, vitals as above Eyes: PERRL, conjunctivae normal, anicteric sclerae ENMT: external ear and nose normal, oropharynx normal Respiratory: normal respiratory effort, lungs clear to auscultation Cardiovascular: RRR, no murmur, no edema Gastrointestinal (Abdomen): diffusely tender abd, improving Skin: no rashes, warm and dry Psychiatric: A+Ox3, euthymic affect Results & Data Laboratory Results Laboratory Results - last 24 hr 09/01/18 09/01/18 09/01/18 06:10 06:10 06:18 WBC 9.85 RBC 4.08 L Hgb 13.4 L Hct 38.6 L MCV 94.6 MCH 32.8 MCHC 34.7 RDW Std Deviation 42.9 RDW Coeff of Tisha 12.6 Plt Count 143 MPV 10.0 Immature Gran % (Auto) 0.1 Neut % (Auto) 76.5 Lymph % (Auto) 11.3 [place] % (Auto) 9.2 Eos % (Auto) 2.8 Baso % (Auto) 0.1 Immature Gran # (Auto) 0.01 Neut # (Auto) 7.53 H Lymph # (Auto) 1.11 L [place] # (Auto) 0.91 H Eos # (Auto) 0.28 Baso # (Auto) 0.01 Sodium 136 Potassium 3.7 Chloride 103 Carbon Dioxide 26 Anion Gap 7.0 BUN 18 Creatinine 0.85 Est Cr Clr Drug Dosing 106.5 Est GFR ( Amer) 112.9 Est GFR (Non-Af Amer) 97.4 BUN/Creatinine Ratio 21.2 H Glucose 81 Calcium 7.6 L Total Bilirubin 1.1 H AST 18 ALT 20 Alkaline Phosphatase 46 Total Protein 6.1 L Albumin 2.8 L Globulin 3.3 Albumin/Globulin Ratio 0.9 Lipase 518 H Medications Administered Current Inpatient Medications Hydromorphone HCl (Dilaudid) 0.5 mg IV Q4H PRN PRN Reason: Pain Stop: 09/14/18 11:31 Last Admin: 09/01/18 13:58 Dose: 0.5 mg Pantoprazole Sodium 40 mg/ (Syringe) 10 mls @ 5 mls/min IV DAILY@1100 RICKEY Stop: 09/30/18 10:59 Last Admin: 09/01/18 11:21 Dose: 5 mls/min Ketorolac Tromethamine (Toradol) 15 mg IV Q6H PRN PRN Reason: Pain Stop: 09/04/18 06:44 Last Admin: 09/01/18 11:23 Dose: 15 mg Lisinopril (Zestril) 10 mg PO DAILY RICKEY Stop: 09/29/18 08:59 Last Admin: 09/01/18 09:21 Dose: 10 mg Ondansetron HCl (Zofran) 4 mg IV Q6H PRN PRN Reason: Nausea Stop: 09/29/18 06:44 Resident Activity Tracking Resident Involvement: Resident Care Provided Care Provided: [facility] _ (1) Pancreatitis Acute pancreatitis complication: unspecified Chronicity: acute Pancreatitis type: unspecified pancreatitis type Qualified Code(s): K85.90 - Acute pancreatitis without necrosis or infection, unspecified
[2018-09-02] MEDS: KETOROLAC TROMETHAMINE 15 MG/ML VIAL IV PRN ×2 (00:04→08:32)
[2018-09-02] MEDS: HYDROmorphone INJ 0.5 MG/0.5 ML SYR IV PRN (06:05)
[2018-09-02 06:21] LABS: Basophils # (auto) 0.01 K/uL (0-0.2); Basophils % (auto) 0.1 %; Eosinophils # (auto) 0.29 K/uL (0-0.5); Hematocrit (blood only) 38.6 % (42-52); Hemoglobin 13.4 g/dL (14.0-18.0); Immature Granulocytes # (auto) 0.02 K/uL (0.00-0.02); Immature Granulocytes % (auto) 0.2 %; Lymphocytes # (auto) 0.93 K/uL (1.2-3.4); Lymphocytes % (auto) 9.6 %; Mean Corpuscular Hgb Conc 34.7 g/dL (32-36); Mean Corpuscular Volume 94.1 fL (80-100); Mean Platelet Volume 10.6 fL (7.4-10.4); Monocytes # (auto) 0.85 K/uL (0.11-0.59); Monocytes % (auto) 8.8 %; Neutrophils # (auto) 7.56 K/uL (1.4-6.5); Neutrophils % (auto) 78.3 %; Platelet Count 160 K/uL (130-400); RDW Coefficient of Variation 12.5 % (11.5-14.5); RDW Standard Deviation 42.8 fL (36.4-46.3); White Blood Count 9.66 K/uL (4.8-10.8)
[2018-09-02 06:50] LABS: BUN Creatinine Ratio 14.9 (10-20); Calcium 8.2 mg/dl (8.5-10.1); Creatinine Clr Calc Pharmacy 101.7 ml/min; Est GFR (African American) 110.8; Est GFR (Non-African American) 95.6; Potassium 3.5 mmol/L (3.5-5.1)
[2018-09-02 06:53] LABS: Albumin Globulin Ratio 0.8 (0.9-2); Bilirubin,Total 1.4 mg/dl (0.2-1); Globulin 3.9 gm/dl (2.5-4.0); Total Protein 6.9 gm/dl (6.4-8.2)
[2018-09-02] MEDS: LISINOPRIL 10 MG TAB PO SCH (08:32)
--- NOTE | 2018-09-02 13:17 | Discharge Summary ---
Date of Service September 02, 2018 Admission HPI Per Admitting Provider Mr. Mcfadden is a 57yo C male with history of HTN presenting with acute abdominal pain. Patient was sleeping in bed when he woke around 22:00 with severe abdominal pain. Pain in lower abdomen and back, cramping and stabbing in nature, 10/10. No nausea/vomiting/diarrhea or constipation. He tried to eat and drink a little bit with no relief. [place] [address] [place] of the abdomen with fat stranding and peripancreatic fluid consistent with pancreatitis. Patient has never had pancreatitis before. No history of gallstones. He does drink 1-2 drinks/day. This evening he was bowling with family and had hot wings and split 2 pitchers of beer between 4 people. Patient also complaining of pain in the left great toe. He has been taking Ibuprofen at home for presumed Gout. Principal Diagnosis pancreatitis Discharge Exam Constitutional WD/WN, vitals as above Eyes PERRL, conjunctivae normal, anicteric sclerae ENMT external ear and nose normal, oropharynx normal Respiratory normal respiratory effort, lungs clear to auscultation Cardiovascular RRR, no murmur, no edema Gastrointestinal (Abdomen) mildly tender abd, improving Skin no rashes, warm and dry Psychiatric A+Ox3, euthymic affect Discharge Data Allergies Allergy/AdvReac Type Severity Reaction Status Date / Time nut - unspecified Allergy Severe Verified 08/30/18 04:32 almond Allergy Anaphylaxis Verified 08/30/18 03:33 Consultations 08/30/18 03:45 ED Decision to Admit Stat 08/30/18 11:18 Consult Gastroenterology Routine Ordered Studies 08/30/18 01:48 CT abd pelvis IV con only Urgent Hospital Course (1) Pancreatitis: 57 y/o M with PMH HTN presented to [facility] 08/30 with complaints of severe abdominal pain that woke him up. Described 10/10 lower abdomen and back pain, cramping and stabbing in nature. Denied nausea/vomiting/diarrhea or constipation. [place] [address] of the abdomen with fat stranding and peripancreatic fluid consistent with pancreatitis. CXR normal. Pt noted only drinks 1-2 drinks/day, and day before maybe had 4-5 with hot wings. No h/o pancreatitis or gallstones before. Pt also noted L great toe pain and took Ibuprofen at home for presumed Gout. The following was the medical management during pt's stay. For his acute pancreatitis, pt was made NPO and put on IV LR, IV protonix, Zofran prn, and IV dilaudid. Pt notes fam hx pancreatitis in father age 55. Diet was slowly increased first to clear liquids then regular diet, both of which pt tolerated. Lipase was trended and at time of d/c it was normal 212. Pt sees [facility] as an outpt and will f/u with them. They recommend EUS eval in 4-6 week's time to r/o cysts, divisium, gallstones which may cause pancreatitis. ETOH cessation counseling should also be continued. Pt encouraged to continue Tylenol on d/c for pain. Additionally, pt's presentation of gout was worked up. Pt had no previous hx and pain improved shortly after admission. Uric acid was normal, X- ray left foot showed no acute process and Toradol PRN given for pain. Pt's HTN was likely 2/2 pain and was continued on Lisinopril daily. DVT Prophylaxis with ambulation, considered low risk. At time of d/c, pt has no other acute concerns or complaints. Total Time Total Time Spent Total Time Spent (In Minutes): 30 min Discharge Plan Discharge Items Patient Disposition: Home - Self-Care Reason For Visit: PANCREATITIS Discharge Diagnosis: pancreatitis Discharge Goals: Decrease discomfort and Improve disease control Activity: Per 'Additional Instructions' section Non-emergency contact: Primary Care Provider Call non-emergency contact if: your symptoms worsen and your pain is not controlled Diet: Heart Healthy Addtl Provider Instructions: You were admitted for acute abdominal pain and imaging and labs done in the ER showed that you had pancreatitis. Please follow the below instructions and see attached information sheet: -Take Tylenol for your pain. Do not exceed 3250 mg/day. You were also given 5 tabs of [place] for pain. -Follow up with [facility] and your PCP within one week of discharge. -If your pain is not controlled, please see your PCP. If symptoms recur, then please come back into ER -Alcohol cessation strongly recommended PATIENT EDUCATION: What is pancreatitis? Pancreatitis is a condition that can cause severe belly pain. The pancreas is an organ that makes hormones and juices that help break down food. Pancreatitis is the term for when this organ gets irritated or swollen. Most people get over pancreatitis without any long-lasting effects. But a few people get very sick. What causes pancreatitis? There are many causes of pancreatitis. But most cases are caused by gallstones or alcohol abuse: Gallstones Gallstones are hard lumps that form inside an organ called the gallbladder. Both the pancreas and the gallbladder drain into a single tube. If that tube gets clogged by a gallstone, neither of the organs can drain. When that happens, the fluids from both organs get backed up. That can cause pain. Alcohol abuse People who drink too much alcohol for too long sometimes get alcohol-related pancreatitis. People with this form of pancreatitis usually start to feel pain 1 to 3 days after drinking a lot of alcohol or after they suddenly stop drinking. They usually also have nausea and vomiting. Is there a test for pancreatitis? There are a few blood tests that can help your doctor or nurse figure out if you have pancreatitis. It's also possible that your doctor will order a special kind of X-ray called a "CT scan" of your belly to check if belly pain is due to pancreatitis or other conditions. How is pancreatitis treated? Pancreatitis is usually treated in the hospital. There, your doctor or nurse can give you fluids and pain medicines to help you feel better. If you cannot eat, they can give you food through a tube. Some people with pancreatitis get an infection, which can be treated with antibiotics. Other possible problems caused by pancreatitis are fluid buildup around the pancreas or organ failure. Fluid buildup around pancreas often goes away on its own but sometimes needs to be drained or treated with surgery. Organ failure is usually handled by a team of doctors in intensive care. Another important part of treatment is to get rid of the cause of the pancreatitis. If your pancreatitis is caused by gallstones, your doctor might need to treat them, too. People with pancreatitis from alcohol use must learn to give up alcohol to keep from getting pancreatitis again. Prescriptions: New hydrocodone-acetaminophen [[place]] 5-325 mg tablet 1 tab PO DAILY Qty: 5 RF: 0 Continue lisinopril 10 mg tablet 10 mg PO DAILY RF: 0 Stand-Alone Forms: [facility] Discharge Orders: Discharge Order (Routine); Ordered 09/02/18 Ordered By: Manuel Crespo Admission Data Admit Date/Time: 08/30/18 04:15 Attending Provider: Rosy Dawson Admit Provider: Chanell Mathew Primary Care Provider: Jose Purcell Other Providers: Chanell Mathew ; Kimberly Diaz Service: Medical Other Interventions: Discharge Summary Assessment (RN) Last Done: 09/02/18 14:17 DC Date/Time DO NOT enter until pt leaves facility: 09/02/18 14:46 Supervising Physician Co-Signing Physician Notes Resident Physician Supervision Note: I independently interviewed and examined the patient and verified the campos history and physical, reviewed labs and image studies, discussed the case with the resident Dr. Crespo and agree with the findings and care plan. Time spent in discharge 35 min Resident Activity Tracking Resident Involvement: Resident Care Provided Care Provided: Adult Hospital Medicine
== END 2018-09-02 14:46 | disposition home or self-care (01) | DRG 440 ==
LOC: ED 23:52 → SUATTDRO 08-30 04:15 → 4W 08-30 04:15